=== PATIENT | female | born 1980 ===

== ENCOUNTER 2018-04-09 09:01 | Emergency (ER) | payer MEDICAID, OTHER ==
[2018-04-09 09:09] VITALS: BP 102/70; PULSE 105; TEMP 100.5; O2SAT 98; BMI 23.6
[2018-04-09] MEDS ORDERED: Sodium Chloride 0.9% 1,000 ML IV STA ×2 (09:24→14:33)
[2018-04-09 10:13] LABS: BASO % 0.2 % (0.0-2.0); HEMOGLOBIN 13.7 g/dL (12.0-16.0); LYMPH % 6.5 % (20.0-40.0); MEAN CELL VOLUME 83.5 fl (81.0-99.0); MEAN CORPUSCULAR HEMOGLOBIN 28.6 pg (27.0-31.0); MEAN CORPUSCULAR HGB CONC 34.3 g/dL (33.0-37.0); MEAN PLATELET VOLUME 7.8 fl (7.2-11.7); MONO # 0.5 K/uL (0.0-0.8); MONO % 3.4 % (0.0-10.0); NEUT # 13.3 K/uL (1.8-7.0); NEUT % 89.9 % (50.0-75.0); NRBC % 0.1 % (0.0-0.0); PLATELET COUNT 259 K/uL (130-400); RBC 4.78 Mil/uL (3.80-5.20); RED CELL DISTRIBUTION WIDTH 14.5 % (11.5-14.5); WHITE BLOOD COUNT 14.7 K/uL (4.8-10.8)
[2018-04-09 10:17] LABS: ALB/GLOB RATIO 1.1 (1.0-2.1); ALBUMIN 4.4 g/dL (3.5-5.0); ALT/SGPT 43 U/L (9-52); AST/SGOT 38 U/L (14-36); BLOOD UREA NITROGEN 11 mg/dl (7-17); CALCIUM 9.7 mg/dL (8.4-10.2); GFR NON-AFRICAN AMERICAN > 60
--- NOTE | 2018-04-09 11:43 | ED PDOC ---
HPI: CCC, URI, Sore Throat Time Seen by Provider: 04/09/18 09:10 Chief Complaint (Nursing): Pain, Chronic Chief Complaint (Provider): Body aches, sore throat and chills History Per: Patient History/Exam Limitations: no limitations Onset/Duration Of Symptoms: Days (x1) Current Symptoms Are (Timing): Still Present Location Of Pain: Throat Associated Symptoms: Fever, Chills, Sore Throat, Other (body aches) Additional Complaint(s): Elvi Honeycutt is a 37 year old female, with a past medical history of Lupus, who presents to the emergency department complaining of chills, body aches and sore throat ongoing since yesterday. Patient took Advil at 07:00. She denies any nausea, vomiting or diarrhea. Patient was noted to have a fever in the ED. No further medical complaints. PMD: None provided. Past Medical History Reviewed: Historical Data, Nursing Documentation, Vital Signs Vital Signs: Last Vital Signs Temp 100.5 F H 04/09/18 09:49 Pulse 105 H 04/09/18 09:08 Resp BP 102/70 04/09/18 09:08 Pulse Ox 98 04/09/18 09:18 - Medical History PMH: Anxiety Other PMH: Lupus - Surgical History Surgical History: No Surg Hx - Family History Family History: States: Unknown Family Hx - Social History Current smoker - smoking cessation education provided: Yes (Ligt smoker <10 cigarettes daily) Alcohol: None Drugs: Denies - Home Medications Home Medications: Ambulatory Orders Medication Instructions Recorded Hydroxychloroquine Sulfate 200 mg PO BID 07/18/14 [Plaquenil] Acetaminophen [Tylenol 325mg tab] 2 tab PO Q4H PRN #20 tab 04/09/18 Methylprednisolone [Medrol Dose 4 mg PO DAILY 04/09/18 Pack (21 tabs)] Naproxen [Naprosyn] 500 mg PO BID PRN #15 tablet 04/09/18 Nitrofurantoin Macrocrystals 100 mg PO BID #14 cap 04/09/18 [Macrobid] Tramadol HCl [Ultram] 50 mg PO BID 04/09/18 - Allergies Allergies/Adverse Reactions: Allergies Allergy/AdvReac Type Severity Reaction Status Date / Time No Known Allergies Allergy Verified 04/09/18 09:17 Review of Systems ROS Statement: Except As Marked, All Systems Reviewed And Found Negative Constitutional: Positive for: Chills, Other (body aches) ENT: Positive for: Throat Pain Gastrointestinal: Negative for: Nausea, Vomiting, Diarrhea Physical Exam - Reviewed Nursing Documentation Reviewed: Yes Vital Signs Reviewed: Yes - Physical Exam Appears: Positive for: In Acute Distress (mild painful distress) Head Exam: Positive for: ATRAUMATIC, NORMOCEPHALIC Skin: Positive for: Normal Color, Warm, Dry Eye Exam: Positive for: Normal appearance, EOMI, PERRL ENT: Positive for: Pharyngeal Erythema (Mild erythematous throat), Other (Uvula midline, no drooling) Neck: Positive for: Painless ROM Cardiovascular/Chest: Positive for: Tachycardia (with regular rhythm ) Respiratory: Positive for: Normal Breath Sounds. Negative for: Respiratory Distress Gastrointestinal/Abdominal: Positive for: Normal Exam, Soft. Negative for: Tenderness, Guarding, Rebound Back: Positive for: Normal Inspection. Negative for: L CVA Tenderness, R CVA T enderness, Vertebral Tenderness Extremity: Positive for: Normal ROM (upper and lower extremities). Negative for: Deformity, Swelling Neurologic/Psych: Positive for: Alert, Oriented - Laboratory Results Result Diagrams: 04/09/18 09:35 04/09/18 09:35 - ECG O2 Sat by Pulse Oximetry: 98 (RA) Pulse Ox Interpretation: Normal Medical Decision Making Medical Decision Making: Time: 09:10 Initial Impression: Fever Initial Plan: --Urine --Urine dipstick --CBC w/ differential --Chest two views (PA/LAT) [RAD] --Tylenol 325 mg tab 650 mg PO --Sodium Chloride 1,000 ml IV 1,000 mls/hr --Blood culture --Throat culture --Urine culture --Urinalysis --Reevaluation Scribe Attestation: Documented by Clinton Ellis, acting as a scribe for Delmy Fleming MD. Provider Scribe Attestation: All medical record entries made by the Scribe were at my direction and personally dictated by me. I have reviewed the chart and agree that the record accurately reflects my personal performance of the history, physical exam, medical decision making, and the department course for this patient. I have also personally directed, reviewed, and agree with the discharge instructions and disposition. Disposition - Clinical Impression Clinical Impression: UTI (urinary tract infection) - Disposition Referrals: [facility] Steffany Jane [Outside] Meet Serna MD [Family Provider] - Disposition: Routine/Home Disposition Time: 14:29 Condition: IMPROVED Prescriptions: Acetaminophen [Tylenol 325mg tab] 2 tab PO Q4H PRN #20 tab PRN Reason: Fever >100.4 F Naproxen [Naprosyn] 500 mg PO BID PRN #15 tablet PRN Reason: Pain, Moderate (4-7) Nitrofurantoin Macrocrystals [Macrobid] 100 mg PO BID #14 cap Instructions: Urinary Tract Infections in Adults Forms: [employer] (Amharic) Print Language: WALLISIAN
[2018-04-09 12:16] LABS: BANDS 3 % (0-2); LYMPHOCYTE 6 % (20-50); MONOCYTE 5 % (0-10); NEUTROPHIL 86 % (42-75); PLATELET ESTIMATE NORMAL (NORMAL); TOTAL CELLS COUNTED 100
[2018-04-09 12:35] LABS: SQUAMOUS EPITHIAL 42 /hpf (0-5); URINE BACTERIA OCC (<OCC); URINE BILIRUBIN NEGATIVE (NEGATIVE); URINE BLOOD LARGE (NEGATIVE); URINE CLARITY CLOUDY (Clear); URINE COLOR AMBER (YELLOW); URINE GLUCOSE (UA) NEG (Normal); URINE LEUKOCYTE ESTERASE LARGE Leu/uL (Negative); URINE PROTEIN 100 mg/dL (NEGATIVE)
--- NOTE | 2018-04-09 12:42 | RAD ---
Date of service: 04/09/2018 HISTORY: Fever COMPARISON: No prior. TECHNIQUE: Chest PA and lateral FINDINGS: LUNGS: No active pulmonary disease. PLEURA: No significant pleural effusion identified. No pneumothorax apparent. CARDIOVASCULAR: Normal. OSSEOUS STRUCTURES: No significant abnormalities. VISUALIZED UPPER ABDOMEN: Normal. OTHER FINDINGS: None. IMPRESSION: No active disease.
[2018-04-09] MEDS ORDERED: cefTRIAXone (Rocephin) 1 gm Inj ONE (14:58)
== END 2018-04-09 16:20 | disposition home or self-care (01) ==
LOC: H.ER 09:01
DX: R68.83 Chills (without fever) (principal); N39.0 Urinary tract infection, site not specified; M32.9 Systemic lupus erythematosus, unspecified; F17.210 Nicotine dependence, cigarettes, uncomplicated
CPT/HCPCS: 71046; 80053; 81003; 81025; 85025; 87040; 87070; 87086; 87430; 87804; 96361; 96374; 99285; J0696; J7030